=== PATIENT | female | born 1995 | race Caucasian/White ===

== ENCOUNTER 2017-07-23 13:12 | Emergency (ER) | payer SELFPAY ==
--- NOTE | 2017-07-23 13:25 | ED Physician Documentation ---
Abdominal Pain - HISTORIAN Historian: patient, parent - HPI Stated Complaint: Right Abdominal Pain Chief Complaint: Abdominal Pain Onset: days ago (1) Duration: constant Timing: still present Context: denies: out of country travel, bad food, recent trauma Severity: mild Quality: sharp Associated Symptoms: none, nausea, vomiting. denies: fever, chills Exacerbated by: nothing Relieved by: supine Further Comments: yes - ROS CONST: no problems GI/: denies: constipation, problems urinating CVS/RESP: none MS/SKIN/LYMPH: denies: rash - SOCIAL HX Smoking History: cigarettes Alcohol Use: none Drug Use: none - FAMILY HX Family History: none - PAST HX Past History: none Ischemic Bowel Risk Factors: none Other History: none Surgeries/Procedures: none Immunizations: referred to PCP Home Medications: Ambulatory Orders Medication Instructions Recorded Ondansetron HCl Rapdis [Zofran Odt] 4 mg PO Q8 PRN #30 tab 07/23/17 Allergies/Adverse Reactions: Allergies Allergy/AdvReac Type Severity Reaction Status Date / Time No Known Allergies Allergy Verified 07/23/17 13:23 - VITAL SIGNS Vital Signs: Vital Signs Temp Pulse Resp BP Pulse Ox 98.2 F 100 H 18 127/76 98 07/23/17 13:15 07/23/17 13:15 07/23/17 13:15 07/23/17 13:15 07/23/17 13:15 - REVIEWED ASSESSMENTS Nursing Assessment Reviewed: Yes Vitals Reviewed: Yes Progress - Progress Progress: pain is improved. per pt. Denies any current nausea. DG ED Results Lab/Radiology - Lab Results Lab Results: Lab Results 07/23/17 07/23/17 07/23/17 15:20 15:20 14:10 WBC 9.60 K/ul K/ul (4.00-12.00) RBC 4.41 M/ul M/ul (3.90-5.20) Hgb 13.4 g/dL g/dL (12.0-16.0) Hct 39.1 % % (34.5-46.5) MCV 88.6 fl fl (80.0-100.0) MCH 30.3 pg pg (28.0-34.0) MCHC 34.2 g/dL g/dL (30.0-36.0) RDW 12.2 % % (11.3-14.3) Plt Count 218 K/mm3 K/mm3 (130-400) Neut % (Auto) 78.3 % % (39.0-79.0) Lymph % (Auto) 13.9 % L % (16.0-50.0) Ware % (Auto) 3.0 % % (0.0-11.0) Eos % (Auto) 3.2 % % (0.0-6.8) Baso % (Auto) 0.5 (0.0-1.5) Neut # (Auto) 7.5 # k/uL # k/uL (1.4-7.7) Lymph # (Auto) 1.3 # k/uL # k/uL (0.6-4.0) Ware # (Auto) 0.3 # k/uL # k/uL (0.0-0.9) Eos # (Auto) 0.3 # k/uL # k/uL (0.0-0.6) Baso # (Auto) 0.0 # k/uL # k/uL (0.0-0.5) Reactive Lymphs % 1.1 % % (0.0-5.0) Reactive Lymphs # 0.1 # k/uL # k/uL (0.0-0.8) Sodium 137 mmol/L mmol/L (136-145) Potassium 4.2 mmol/L mmol/L (3.5-5.1) Chloride 102 mmol/L mmol/L (98-107) Carbon Dioxide 26 mmol/L mmol/L (22-30) BUN 7 mg/dL mg/dL (7-17) Creatinine 0.90 mg/dL mg/dL (0.52-1.04) Estimated Creat Clear 100 Est GFR ( Amer) > 60 (60 - ) Est GFR (Non-Af Amer) > 60 (60 - ) Glucose 88 mg/dL mg/dL (74-106) Calcium 9.5 mg/dL mg/dL (8.4-10.2) Total Bilirubin 0.6 mg/dL mg/dL (0.2-1.3) AST 18 U/L U/L (15-46) ALT 25 U/L U/L (13-69) Alkaline Phosphatase 80 U/L U/L (38-126) Total Protein 7.6 g/dL g/dL (6.3-8.2) Albumin 4.3 g/dL g/dL (3.5-5.0) Urine Color Urine Appearance Urine pH Ur Specific [place] Urine Protein Urine Ketones Urine Occult Blood Urine Nitrite Urine Bilirubin Urine Urobilinogen Ur Leukocyte Esterase Urine Glucose Urine HCG, Qual Negative (NEGATIVE) 07/23/17 14:10 WBC RBC Hgb Hct MCV MCH MCHC RDW Plt Count Neut % (Auto) Lymph % (Auto) Ware % (Auto) Eos % (Auto) Baso % (Auto) Neut # (Auto) Lymph # (Auto) Ware # (Auto) Eos # (Auto) Baso # (Auto) Reactive Lymphs % Reactive Lymphs # Sodium Potassium Chloride Carbon Dioxide BUN Creatinine Estimated Creat Clear Est GFR ( Amer) Est GFR (Non-Af Amer) Glucose Calcium Total Bilirubin AST ALT Alkaline Phosphatase Total Protein Albumin Urine Color Yellow (YELLOW) Urine Appearance Clear (CLEAR) Urine pH 7.0 (5.0 - 8.0) Ur Specific [place] 1.010 (1.010-1.030) Urine Protein Negative mg/dL mg/dL (NEGATIVE) Urine Ketones Negative mg/dL mg/dL (NEGATIVE) Urine Occult Blood Negative (NEGATIVE) Urine Nitrite Negative (NEGATIVE) Urine Bilirubin Negative (NEGATIVE) Urine Urobilinogen 0.2 Eu Eu (0.2-1.0) Ur Leukocyte Esterase Negative (NEGATIVE) Urine Glucose Negative mg/dL mg/dL (NEGATIVE) Urine HCG, Qual - Radiology Radiology Impressions: Examination: CT Abdomen/pelvis History: Right upper quadrant discomfort. Comparison exams: None available Technique: CT Abdomen/pelvis without contrast protocol. Findings: Liver, spleen, adrenal glands, kidneys, pancreas and gallbladder are without irregularity given exam technique. No gallstone. Suggestion for foci of air in the region of the common bile duct. No suspicious renal calcifications. Ureters not well visualized. Bladder partially distended. Abdominal aorta without aneurysm or peripheral atherosclerotic disease. Cardiac silhouette is not enlarged. No pericardial effusion. Bowel without contrast limiting evaluation. No evidence for acute mesenteric inflammation or free air. Few prominent loops of upper central abdomen small bowel with air-fluid levels. Stool within the large bowel limiting sensitivity. Appendix is not visualized. Osseous structures are appropriate for age. Lung bases without infiltrate. No infiltrate. Impression: Upper abdominal small bowel prominence with air-fluid levels suggesting enteritis. No gallstone. Possible air within the common bile duct - not well visualized/ evaluated on the noncontrast examination. Consider post contrast imaging of the abdomen or right upper quadrant ultrasound to further evaluate. No suspicious renal calcifications. Stool within the large bowel suggesting component of constipation. Appendix is not visualized. No lung base consolidation or effusion. Electronically signed on Jul 23, 2017 3:49:22 PM SOIL F[employer]ILITY EXTENSION SPECIALIST by: Loi Aguero - Orders Orders: ED Orders Category Date Time Status CT ABD & PELVIS W/O CON Stat Exams 07/23/17 Completed CBC/PLATELET/DIFF Stat Lab 07/23/17 15:20 Completed CMP Stat Lab 07/23/17 15:20 Completed UA W/MICRO IF INDICATED Routine Lab 07/23/17 14:10 Completed URINE HCG Stat Lab 07/23/17 14:10 Completed Ketorolac Tromethamine [Toradol] Med 07/23/17 15:40 Discontinued 30 mg IM NOW ONE Abdominal Pain Physical Exam - Physical Exam General Appearance: no acute distress EENT: eye inspection normal NECK: normal inspection RESPIRATORY: no resp distress, chest non-tender, breath sounds normal CVS: reg rate & rhythm, heart sounds normal, equal pulses, no murmur ABDOMEN: soft, no organomegaly, normal bowel sounds, guarding. No: rebound SKIN: warm/dry, normal color EXTREMITIES: non-tender, normal range of motion NEURO: oriented X3, CN's nml as tested, motor nml, sensation nml Vital Signs: Vital Signs Temp Pulse Resp BP Pulse Ox 98.2 F 100 H 18 127/76 98 07/23/17 13:15 07/23/17 13:15 07/23/17 13:15 07/23/17 13:15 07/23/17 13:15 Discharge Clincal Impression: Enteritis Prescriptions: Ondansetron HCl Rapdis [Zofran Odt] 4 mg PO Q8 PRN #30 tab PRN Reason: Nausea / Vomiting Referrals: Guevara Baumann MD [Primary Care Provider] - 2 Days Additional Instructions: Clear liquids advance to bland diet as needed Return for any change in symptoms or concerns OTC meds for fever or pain DG Disposition: 01 HOME, SELF-CARE Decision to Admit: NO Date of Decison to Admit: 07/23/17 Decision Time: 15:54
[2017-07-23 14:59] LABS: APPEARANCE,URINE CLEAR (CLEAR); COLOR,URINE YELLOW (YELLOW); OCCULT BLOOD,URINE NEGATIVE (NEGATIVE); UROBILINOGEN URINE 0.2 Eu (0.2-1.0)
[2017-07-23 15:30] LABS: BASOPHILS % 0.5 (0.0-1.5); EOSINOPHILS % 3.2 % (0.0-6.8); MEAN CORPUSCULAR HEMOGLOBIN 30.3 pg (28.0-34.0); MEAN CORPUSCULAR VOLUME 88.6 fl (80.0-100.0); NEUTROPHILS # 7.5 # k/uL (1.4-7.7)
[2017-07-23] MEDS ORDERED: KETOROLAC TROMETHAMINE 30 MG/1ML VIAL IM ONE (15:40)
--- NOTE | 2017-07-23 16:01 | Diagnostic Imaging Report ---
[facility] [address] [facility] [address] [place], [place]. [address] Report Submission Date: Jul 23, 2017 3:49:22 PM STRIPE MATCHER Patient Study Name: KATHRINE CALIX I Date: Jul 23, 2017 3:24:16 PM STRIPE MATCHER Modality Type: CT\SR Gender: F Description: CT ABD & PELVIS W/O CO : 89 Institution: [facility] Physician: SUNDAR BARRIOS - ANA Examination: CT Abdomen/pelvis History: Right upper quadrant discomfort. Comparison exams: None available Technique: CT Abdomen/pelvis without contrast protocol. Findings: Liver, spleen, adrenal glands, kidneys, pancreas and gallbladder are without irregularity given exam technique. No gallstone. Suggestion for foci of air in the region of the common bile duct. No suspicious renal calcifications. Ureters not well visualized. Bladder partially distended. Abdominal aorta without aneurysm or peripheral atherosclerotic disease. Cardiac silhouette is not enlarged. No pericardial effusion. Bowel without contrast limiting evaluation. No evidence for acute mesenteric inflammation or free air. Few prominent loops of upper central abdomen small bowel with air-fluid levels. Stool within the large bowel limiting sensitivity. Appendix is not visualized. Osseous structures are appropriate for age. Lung bases without infiltrate. No infiltrate. Impression: Upper abdominal small bowel prominence with air-fluid levels suggesting enteritis. No gallstone. Possible air within the common bile duct - not well visualized/ evaluated on the noncontrast examination. Consider post contrast imaging of the abdomen or right upper quadrant ultrasound to further evaluate. No suspicious renal calcifications. Stool within the large bowel suggesting component of constipation. Appendix is not visualized. No lung base consolidation or effusion. Electronically signed on Jul 23, 2017 3:49:22 PM STRIPE MATCHER by: Loi WOODARD
[2017-07-23 16:25] LABS: eGFR (African) > 60; eGFR (Non-African) > 60
[2017-07-23 16:31] VITALS: BP 108/58
== END 2017-07-23 16:28 | disposition home or self-care (01) ==
LOC: ED 13:12
DX: K52.9 Noninfective gastroenteritis and colitis, unspecified (principal)
CPT/HCPCS: 36415; 74176; 80053; 81002; 81025; 85025; J1885; 96372; 99283

== ENCOUNTER 2018-10-02 15:30 | Outpatient (CLI) | payer OTHER | END 2018-10-02 15:33 | LOC: LABRHC 15:30 | PROVIDERS: ATTEND Nurse Practitioner Family | DX: N39.0 Urinary tract infection, site not specified (principal); B96.20 Unspecified Escherichia coli [E. coli] as the cause of diseases classified elsewhere | CPT/HCPCS: 87086 ==